=== PATIENT | male | born 1945 | race African-American/Black ===

== ENCOUNTER → 2017-07-16 | Outpatient (CLI) | payer OTHER ==
[~2017-07-16] VITALS: Ht 175.3 cm; Wt 94.5 kg
[~2017-07-16] MED LIST: ASPI81 PO; CHOL50004 PO; GLIP10 PO; HYDR-309 PO; LISI-662 PO; METF10004 PO; METF500T7 PO; MOME13HF IH; MONT10TA21 PO; NITR0.4T50 SL; RANO500T3 PO; SIMV-261 PO
[2017-07-16 09:47] VITALS: BP 117/69
== END | disposition home or self-care (01) ==
LOC: SRCNTR 09:31
PROVIDERS: ATTEND Internal Medicine Cardiovascular Disease
DX: I11.9 Hypertensive heart disease without heart failure (principal); E11.9 Type 2 diabetes mellitus without complications; I25.10 Atherosclerotic heart disease of native coronary artery without angina pectoris; E78.5 Hyperlipidemia, unspecified; M17.0 Bilateral primary osteoarthritis of knee; E66.9 Obesity, unspecified; Z79.4 Long term (current) use of insulin
CPT/HCPCS: 93005; G0463